=== PATIENT | male | born 2000 | race Caucasian/White ===

== ENCOUNTER → 2018-01-11 | Outpatient (CLI) | payer OTHER ==
[~2018-01-11] MED LIST: ALLERGY MED; ASPI-586 PO
--- NOTE | 2018-01-11 17:44 | Diagnostic Imaging Report ---
INDICATION: Chronic right foot pain in the region of the first metatarsal. TIME OF EXAM: 5:49 PM Three views of the right foot were obtained. FINDINGS: The metatarsals appear intact. No periosteal reaction or stress reaction is seen. The phalanges are intact. The midfoot and hindfoot are unremarkable. No fractures are seen. IMPRESSION: No acute bony abnormality is detected. Dictated by: Dictated on workstation # [id number]
== END ==
LOC: RAD 17:08
PROVIDERS: ATTEND Pediatrics
DX: G89.29 Other chronic pain (principal); M79.671 Pain in right foot
CPT/HCPCS: 73630

== ENCOUNTER 2020-01-27 12:59 | Emergency (ER) | payer OTHER ==
[~2020-01-27] VITALS: Ht 177.8 cm; Wt 79.3 kg
[2020-01-27] MEDS ORDERED: ACETAMINOPHEN 500 MG TAB (TYLENOL) PO STA (14:08)
--- NOTE | 2020-01-27 14:30 | ED Cough/URI ---
General Chief Complaint: Cough/Cold/Flu Symptoms Stated Complaint: SOB,COUGH,BACK PAIN Nursing Triage Note: PATIENT AMBULATORY TO COVID UNIT WITH COMPLAINT OF HEADACHE, COUGH, BODY ACHES, SORE THROAT THAT BEGAN THIS MORNING. PT IS A [employer] STUDENT. HE DOES NOT KNOW IF HE HAS BEEN EXPOSED TO COVID. Sepsis Screen: Possible Severe Sepsis Risk Source: patient Exam Limitations: no limitations History of Present Illness Date Seen by Provider: Jan 27, 2020 Time Seen by Provider: 14:00 Initial Comments here with report of fevers, chills, body aches, headache, sore throat and cough that started this morning. He is a [employer] student. He works at [employer] and there has beento positive cases of COVID-19 there. Otherwise he is unsure of contact an COVID-19. Timing/Duration: this morning, getting worse Severity/Quality: mild, dry cough Prior Episodes/Possible Cause: no prior episodes Modifying Factors: Improves With Rest Associated Symptoms: cough, fever/chills, muscle aches, nasal congestion, shortness of breath, sore throat Allergies and Home Medications Allergies Coded Allergies: No Known Drug Allergies (Unverified , 10/10/10) Home Medications Aspirin 81 Mg Tablet.dr, 81 MG PO DAILY, (Reported) Patient Home Medication List Home Medication List Reviewed: Yes Review of Systems Review of Systems Constitutional: see HPI, chills, fever EENTM: nose congestion, throat pain Respiratory: cough, short of breath Cardiovascular: no symptoms reported Gastrointestinal: no symptoms reported Genitourinary: no symptoms reported Musculoskeletal: No joint pain; muscle pain Skin: no symptoms reported All Other Systems Reviewed Negative Unless Noted: Yes Past Tadhvwl-Ttmfsb-Yxoecm Hx Past Med/Social Hx: Reviewed Nursing Past Med/Soc Hx Patient Social History Alcohol Use: Occasionally Uses Alcohol Beverage of Choice: Beer Recreational Drug Use: No Smoking Status: Never a Smoker 2nd Hand Smoke Exposure: No Recent Foreign Travel: No Contact w/Someone Who Travel: No Recent Infectious Disease Expo: No Recent Hopitalizations: No Physical Abuse: No Sexual Abuse: No Mistreated: No Fear: No Immunizations Up To Date Tetanus Booster (TDap): Less than 5yrs PED Vaccines UTD: Yes Past Medical History Surgeries: Yes (DENTAL) Respiratory: No Cardiac: No Neurological: No Reproductive Disorders: No Sexually Transmitted Disease: No Gastrointestinal: No Musculoskeletal: No Endocrine: No Cancer: No Psychosocial: No Family Medical History Reviewed Nursing Family Hx Physical Exam Vital Signs - First Documented 01/27/20 13:15 Temp 37.6 Pulse 97 Resp 18 B/P (MAP) 133/86 (102) Pulse Ox 98 O2 Delivery Room Air Capillary Refill : Less Than 3 Seconds Height: 5'10" Weight: 210lbs. oz. 95.175582ox; 25.00 BMI Method:Stated General Appearance: WD/WN, no apparent distress HEENT: PERRL/EOMI, pharyngeal erythema Neck: full range of motion, supple, normal inspection Respiratory: lungs clear, normal breath sounds Cardiovascular: regular rate, rhythm, no murmur Gastrointestinal: non tender, soft Extremities: non-tender, normal inspection Neurologic/Psychiatric: alert, oriented x 3 Skin: normal color, warm/dry Progress/Results/Core Measures Suspected Sepsis Recent Fever Within 48 Hours: Yes Infection Criteria Present: Suspected New Infection New/Unexplained Altered Menta: No Sepsis Screen: Possible Severe Sepsis Risk SIRS Temperature: Pulse: 97 Respiratory Rate: 18 Blood Pressure 133 /86 Mean: 102 Results/Orders Lab Results Laboratory Tests Test 01/27/20 14:11 Range/Units Coronavirus (COVID-19)(PCR) DETECTED H Not Detecte My Orders Orders - ROC GREEN MD Chest 1 View, Ap/Pa Only (01/27/20 13:58) Coronavirus Sars-Cov-2 So 2018 (01/27/20 13:58) Acetaminophen Tablet (Tylenol Tablet) (01/27/20 14:08) Vital Signs/I&O 01/27/20 01/27/20 01/27/20 13:15 14:19 14:46 Temp 37.6 37.6 Pulse 97 87 Resp 18 16 B/P (MAP) 133/86 (102) 112/87 Pulse Ox 98 98 O2 Delivery Room Air Room Air Capillary Refill : Less Than 3 Seconds Blood Pressure Mean: 102 Progress Note : Progress Note seen and evaluated. Chest x-ray and COVID screening swab ordered. Tylenol 1 g by mouth. Monitor patient.1430:questionable airspace density. Atelectasis likely. Also consistent with concerns for COVID-19. Discharged home with return precautions. Patient verbalize understanding instructions and agreement with plan. Diagnostic Imaging Diagonstic Imaging: Xray Plain Films/CT/US/NM/MRI: chest Comments NAME: WICHO GAMEZ [facility] REC#: [id number] PT STATUS: REG ER : 2000 PHYSICIAN: ROC GREEN MD ADMIT DATE: 01/27/20/ER Draft Date of Exam:01/27/20 CHEST 1 VIEW, AP/PA ONLY EXAM: CHEST 1 VIEW, AP/PA ONLY INDICATION: Fever. Cough. Shortness of air. COMPARISON: None. FINDINGS: Normal heart size and central pulmonary vascularity. No pleural effusion or pneumothorax. Subtle airspace opacity in the right lung base. Osseous structures are intact. IMPRESSION: Subtle airspace opacity in the right lung base could represent early pneumonitis versus atelectasis. Dictated on workstation # [id number] Dict: 01/27/20 1430 Trans: 01/27/20 1432 CV [id number] Interpreted by: MYLA CISNEROS MD Electronically signed by: Reviewed: Reviewed by Me Departure Impression Primary Impression: Viral infection Additional Impression: 2019 novel coronavirus disease (COVID-19) Disposition: 01 HOME, SELF-CARE Condition: Stable Departure-Patient Inst. Decision time for Depature: 14:32 Referrals: CARLITA CRUZ MD (PCP/Family) Primary Care Physician Patient Instructions: Coronavirus Disease 2019 (COVID-19) (DC), Viral Syndrome (DC) Add. Discharge Instructions: All discharge instructions reviewed with patient and/or family. Voiced understanding. Drink plenty of fluids and get plenty of rest. You will need to remain on quarantine until test results are noted. If they are negative, you will need to be isolated for 3 days after symptoms resolve. If they are positive, the health department will call you and direct quarantine timeframe. You may take ibuprofen 600 mg every 8 hours as needed for fever or pain. You may take Tylenol/acetaminophen 1000 mg every 8 hours as needed for fever.. Return for worse pain, fever, vomiting, weakness, breathing problems or other concerns as needed. Copy Copies To 1: LAMBERT ELLIOTT MD, TIMOTHY D MD Jan 27, 2020 14:30
[2020-01-27 14:46] VITALS: BP 112/87
--- NOTE | 2020-01-28 15:13 | NUR ---
Notified patient of positive COVID test. Quarantine explained and questions answered. Also notified the [facility] Health Dept.
== END 2020-01-27 14:47 | disposition home or self-care (01) ==
LOC: EDUNIT# 12:59 → ER 13:01
DX: U07.1 COVID-19 (principal); Z79.82 Long term (current) use of aspirin
CPT/HCPCS: 71045; 99283; U0002; 87635

== ENCOUNTER 2020-08-26 11:39 | Emergency (ER) | payer OTHER ==
[~2020-08-26] VITALS: Ht 177.8 cm; Wt 81.6 kg
--- NOTE | 2020-08-26 12:03 | ED Lower Extremity ---
General Chief Complaint: Lower Extremity Stated Complaint: RIGHT ANKLE INJURY Nursing Triage Note: PT AMBULATE TO TRIAGE WITH C/O RIGHT ANKLE PAIN STARTING LAST NIGHT. PT STATES HE WAS PLAYING BASKETBALL AND LANDED ON ANOTHER PLAYER. Nursing Sepsis Screen: No Definite Risk Source: patient, family Exam Limitations: no limitations History of Present Illness Date Seen by Provider: Aug 26, 2020 Time Seen by Provider: 12:00 Initial Comments Patient is a 20-year-old male who presents to the emergency department today with a chief complaint of right ankle pain after rolling his ankle while playing basketball last evening. Patient states that he has been able to barely put weight on the ankle. He denies any knee pain or hip pain. He is having a little bit of left leg cramping secondary to hopping around on his left leg. No other complaints of recent illness or injury. Onset: yesterday Pain/Injury Location: right ankle Method of Injury: fell Modifying Factors: Worse With Movement Allergies and Home Medications Allergies Coded Allergies: No Known Drug Allergies (Unverified , 10/10/10) Home Medications Aspirin 81 Mg Tablet.dr, 81 MG PO DAILY, (Reported) Patient Home Medication List Home Medication List Reviewed: Yes Review of Systems Constitutional: no symptoms reported EENTM: no symptoms reported Respiratory: no symptoms reported Cardiovascular: no symptoms reported Gastrointestinal: no symptoms reported Musculoskeletal: joint pain (Right ankle), joint swelling (Right ankle) Skin: no symptoms reported All Other Systems Reviewed Negative Unless Noted: Yes Past Uulyuyj-Aihyrx-Lltquh Hx Patient Social History Alcohol Use: Occasionally Uses Number of Drinks Today: AA Alcohol Beverage of Choice: Beer Smoking Status: Current Everyday Smoker Type Used: Electronic/Vapor 2nd Hand Smoke Exposure: No Recent Infectious Disease Expo: No Recent Hopitalizations: No Immunizations Up To Date Tetanus Booster (TDap): Less than 5yrs PED Vaccines UTD: Yes Past Medical History Surgeries: Yes (DENTAL) Respiratory: No Cardiac: No Neurological: No Reproductive Disorders: No Sexually Transmitted Disease: No Gastrointestinal: No Musculoskeletal: No Endocrine: No Cancer: No Psychosocial: Yes ADD/ADHD Integumentary: No Blood Disorders: No Physical Exam Vital Signs Vital Signs - First Documented 08/26/20 11:46 Temp 36.9 Pulse 93 Resp 18 B/P (MAP) 146/84 (104) O2 Delivery Room Air Capillary Refill : Less Than 3 Seconds Height, Weight, BMI Height: 5'10" Weight: 210lbs. oz. 95.951430fd; 25.00 BMI Method:Stated General Appearance: WD/WN, no apparent distress Cardiovascular: regular rate, rhythm, other (Distal pulses intact) Respiratory: normal breath sounds, no respiratory distress, no accessory muscle use Gastrointestinal: non tender, soft Hips: bilateral hip non-tender, bilateral hip normal inspection, bilateral hip normal range of motion Legs: bilateral leg non-tender, bilateral leg normal inspection, bilateral leg normal range of motion Knees: bilateral knee non-tender, bilateral knee normal inspection, bilateral knee normal range of motion Ankles: right ankle bone tenderness, right ankle joint effusion, right ankle soft tissue tenderness, right ankle swelling Feet: bilateral foot non-tender, bilateral foot normal inspection, bilateral foot normal range of motion Neurologic/Tendon: normal sensation, normal motor functions, normal tendon functions Neurologic/Psychiatric: alert, normal mood/affect, oriented x 3 Skin: normal color, warm/dry Progress/Results/Core Measures Results/Orders My Orders Orders - REZA BHARDWAJ MD Ankle, Right, 3 Views (08/26/20 12:03) Hydrocodone/Apap 7.5/325 Tab (Lortab 7. (08/26/20 12:15) Medications Given in ED Current Medications Medications Dose Ordered Sig/Anais Route Start Time Stop Time Status Last Admin Dose Admin Acetaminophen/ Hydrocodone Bitart 1 ea ONCE ONCE PO 08/26/20 12:15 08/26/20 12:16 DC 08/26/20 12:20 1 EA Vital Signs/I&O 08/26/20 11:46 Temp 36.9 Pulse 93 Resp 18 B/P (MAP) 146/84 (104) O2 Delivery Room Air Blood Pressure Mean: 104 Progress Progress Note : Time: 12:58 Progress Note Patient will be placed in an air splint to the right lower extremity. Given crutches advised to toe-touch weight-bear for the next 3 days and then slowly put more weight on his right ankle. He will be sent home with some pain medications. He is advised to ice and elevate. He verbalized understanding. All questions were sought and answered. Patient stable for discharge. Diagnostic Imaging Diagonstic Imaging: Xray Plain Films/CT/US/NM/MRI: ankle Comments [facility] [place], [place] NAME: JONN GAMEZ [facility] REC#: [id number] PT STATUS: REG ER : 2000 PHYSICIAN: REZA BHARDWAJ MD ADMIT DATE: 08/26/20/ER Signed Date of Exam:08/26/20 ANKLE, RIGHT, 3 VIEWS INDICATION: Rolled ankle, pain. COMPARISON: 10/13/2013 TECHNIQUE: Three radiographs of the right ankle dated 08/27/2019. FINDINGS: No acute fracture or dislocation. No destructive osseous process. The talar dome is unremarkable. Ankle mortise is symmetric. Soft tissue swelling is noted about the ankle, particularly laterally. No suspicious radiopaque foreign body. IMPRESSION: No acute osseous abnormality with soft tissue swelling about the ankle, particularly laterally. Dictated by: Dictated on workstation # [id number] Dict: 08/26/20 1249 Trans: 08/26/20 1254 [facility] [id number] Interpreted by: ERIC HAWKINS MD Electronically signed by: ERIC HAWKINS MD 08/26/20 1254 Departure Impression Primary Impression: Sprain and strain of ankle Disposition: 01 HOME, SELF-CARE Condition: Stable Departure-Patient Inst. Decision time for Depature: 13:03 Referrals: SELENA PARKER MD (PCP/Family) Primary Care Physician Patient Instructions: Ankle Sprain ED Add. Discharge Instructions: Ice and elevate your right ankle for the next 24 hours. Take wxzo-hsl-sfyjozr ibuprofen or Aleve as directed on the bottle. Always take this medication with food. Follow-up with your primary care physician, Dr. Parker or with Dr. Jorgensen, orthopedic surgeon area operations director. His contact information has been provided. Scripts Hydrocodone/Acetaminophen (Hydrocodone-Acetamin 5-325 mg) 1 Each Tablet 1 TAB PO Q6H PRN for PAIN-MODERATE (5-7), #10 TAB Prov: REZA BHARDWAJ MD 08/26/20 Work/School Note: School/Childcare Release Date Seen in the Emergency Department: Aug 26, 2020 Time Dismissed from Emergency Department: 13:25 Return to School: Aug 27, 2020 Restrictions: No Sports-Until Released Other Restrictions Listed Below: Jonn will need to use the elevator x1 week to get to class REZA BHARDWAJ MD Aug 26, 2020 12:03
[2020-08-26] MEDS ORDERED: HYDROcodone/APAP 7.5 MG/325 MG (LORTAB, LORCET PLUS) TABLET PO ONE (12:15)
--- NOTE | 2020-08-26 12:53 | Diagnostic Imaging Report ---
INDICATION: Rolled ankle, pain. COMPARISON: 10/13/2013 TECHNIQUE: Three radiographs of the right ankle dated 08/27/2019. FINDINGS: No acute fracture or dislocation. No destructive osseous process. The talar dome is unremarkable. Ankle mortise is symmetric. Soft tissue swelling is noted about the ankle, particularly laterally. No suspicious radiopaque foreign body. IMPRESSION: No acute osseous abnormality with soft tissue swelling about the ankle, particularly laterally. Dictated by: Dictated on workstation # [id number]
[2020-08-26] MEDS ORDERED: ACHD5005 PO (13:25)
[2020-08-26 13:32] VITALS: BP 121/74
== END 2020-08-26 13:32 | disposition home or self-care (01) ==
LOC: EDUNIT# 11:39 → ER 11:43
DX: S96.911A Strain of unspecified muscle and tendon at ankle and foot level, right foot, initial encounter (principal); S93.401A Sprain of unspecified ligament of right ankle, initial encounter; F17.290 Nicotine dependence, other tobacco product, uncomplicated; Z79.82 Long term (current) use of aspirin; W03.XXXA Other fall on same level due to collision with another person, initial encounter; X50.1XXA Overexertion from prolonged static or awkward postures, initial encounter; Y93.67 Activity, basketball
CPT/HCPCS: 73610; 99283; L4350

== ENCOUNTER → 2020-09-03 | Outpatient (CLI) | payer OTHER ==
[~2020-09-03] MED LIST changes: +ACHD5005 PO
--- NOTE | 2020-09-03 10:38 | Diagnostic Imaging Report ---
INDICATION: Ankle pain. Injury. COMPARISON: 08/26/2020 FINDINGS: 3 radiographic views of the right ankle were obtained and show persistent mild asymmetric lateral soft tissue swelling. Underlying osseous structures are intact. Joint spaces are maintained. There is no evidence acute fracture or dislocation. No unexpected radiopaque foreign bodies are seen. IMPRESSION: 1. Mild soft tissue swelling, but no evidence of acute fracture or dislocation of the right ankle. Dictated by: Dictated on workstation # [id number]
--- NOTE | 2020-09-03 10:39 | Diagnostic Imaging Report ---
INDICATION: Pain status post previous injury COMPARISON: 01/11/2018 FINDINGS: 3 views of the right foot demonstrate no acute fracture or dislocation. There are no focal osseous lesions. There is no soft tissue swelling. Joint spaces are well maintained. No radiopaque foreign bodies are seen. IMPRESSION: No acute fractures or dislocations of the right foot. Dictated by: Dictated on workstation # [id number]
== END ==
LOC: RAD 09:17
PROVIDERS: ATTEND Nurse Practitioner Family
DX: M25.571 Pain in right ankle and joints of right foot (principal); M25.471 Effusion, right ankle
CPT/HCPCS: 73610; 73630

== ENCOUNTER 2021-03-16 03:51 | Emergency (ER) | payer OTHER ==
[~2021-03-16] VITALS: Ht 180.3 cm; Wt 75.0 kg
--- NOTE | 2021-03-16 05:11 | ED Psychosocial ---
General Chief Complaint: General Problems/Pain Stated Complaint: ANXIETY Nursing Triage Note: Pt arrival to ER via EMS with complaint of Anxiety. Pt states that his parents who have been together forever are talking about getting a divorce. Pt states that this AM he got into argument with his father and just has alot going on. Pt states that he did smoke some pot around 0100. Pt denies other complaints. (MAGDA BISWAS) History of Present Illness Date Seen by Provider: Mar 16, 2021 Time Seen by Provider: 04:00 Initial Comments Patient is a 20 year old male that presents to the emergency room with complaints of anxiety. Patient states that he recently found out his father is getting deployed. He states that he had a rough day at work and then when he got home his parents were arguing. Patient states he got into an argument with his father, which caused his parents to fight further and caused his father to leave briefly. Patient states his anxiety began flaring up then and progressively got worse until this evening. Patient tried to smoke marijuana to calm down around midnight. Around 0230 patient could no longer keep himself calm. Reports seeing lights when he opened his eyes and thought his heart was going to beat out of his chest. Stated he was scared something might happen to him and came to the ER to get help. Patient has a history of anxiety and used to take buspar four years ago but has since discontinued. Patient does state he still suffers from anxiety, and occasionally still does have periods of increased anxiety, but nothing like this. Patient does suffer from ADHD and take vyvanse daily. Timing/Duration: this afternoon, this evening, getting worse Severity: mild Associated Symptoms: anxiety, impaired concentration (MAGDA BISWAS) Allergies and Home Medications Allergies Coded Allergies: No Known Drug Allergies (Unverified , 10/10/10) Patient Home Medication List Home Medication List Reviewed: Yes (MAGDA BISWAS) Aspirin (Aspir 81) 81 Mg Tablet., 81 MG PO DAILY, (Reported) Entered as Reported by: SHANTEL MATIAS on 01/28/16 1429 Hydrocodone/Acetaminophen (Hydrocodone-Acetamin 5-325 mg) 1 Each Tablet, 1 TAB P O Q6H PRN for PAIN-MODERATE (5-7) Prescribed by: REZA BHARDWAJ on 08/26/20 1326 [Allergy Med] , (Reported) Entered as Reported by: ROSIO HALE on 02/04/12 7809 Review of Systems Constitutional: diaphoresis EENTM: blurred vision Respiratory: No cough; short of breath Cardiovascular: No chest pain; palpitations Gastrointestinal: No abdominal pain Psychiatric/Neurological: Anxiety (MAGDA BISWAS) Past Xfnduuv-Xnyyus-Qsaaoq Hx Patient Social History Tobacco Use?: Yes Use of E-Cig and/or Vaping dev: Yes E-Cig or Vaping type used: Nicotine, Marijuana Use of E-Cig and/or Vaping Joon: Current Everyday User Substance use?: Yes Substance type: Marijuana Substance frequency: Couple times a week Alcohol Use?: Yes Alcohol type: Beer, Hard Liquor Alcohol Frequency: Couple times a week Pt feels they are or have been: No (MAGDA BISWAS) Immunizations Up To Date Tetanus Booster (TDap): Less than 5yrs PED Vaccines UTD: Yes Influenza Vaccine Up-to-Date: No; Not Current (MAGDA BISWAS) Past Medical History Surgeries: Yes (DENTAL) Respiratory: No Cardiac: No Neurological: No Reproductive Disorders: No Sexually Transmitted Disease: No Gastrointestinal: No Musculoskeletal: No Endocrine: No Cancer: No Psychosocial: Yes ADD/ADHD Integumentary: No Blood Disorders: No (MAGDA BISWAS) Family Medical History Hypertension (MAGDA BISWAS) Physical Exam Vital Signs - First Documented 03/16/21 03:54 Temp 36.7 Pulse 107 Resp 20 B/P (MAP) 190/92 (124) Pulse Ox 97 O2 Delivery Room Air (REZA BHARDWAJ MD) Capillary Refill : Less Than 3 Seconds (MAGDA BISWAS) Height, Weight, BMI Height: 5'10" Weight: 210lbs. oz. 95.964462wk; 23.00 BMI Method:Stated General Appearance: WD/WN, mild distress (anxious) Neck: normal inspection Respiratory: no respiratory distress, no accessory muscle use Cardiovascular: normal peripheral pulses, tachycardia Gastrointestinal: non tender, soft Neurologic/Psychiatric: alert, oriented x 3 Skin: normal color, warm/dry (MAGDA BISWAS) Progress/Results/Core Measures Results/Orders Vital Signs/I&O 03/16/21 03:54 Temp 36.7 Pulse 107 Resp 20 B/P (MAP) 190/92 (124) Pulse Ox 97 O2 Delivery Room Air (REZA BHARDWAJ MD) Blood Pressure Mean: 124 Departure Impression Primary Impression: Anxiety attack Disposition: 01 HOME, SELF-CARE Condition: Improved Departure-Patient Inst. Decision time for Depature: 05:34 (REZA BHARDWAJ MD) Referrals: SELENA PARKER MD (PCP/Family) Primary Care Physician Patient Instructions: Anxiety, Adult (DC) Add. Discharge Instructions: I have sent a prescription for Vistaril to [facility] for you. Do not drive and take this medication. Please follow up with Dr Parker regarding your anxiety/panic disorder. Return to the Emergency Department for any new, concerning or emergent complaints. Scripts Hydroxyzine Pamoate (Vistaril) 50 Mg Capsule 50 MG PO Q6H PRN for anxiety, #20 CAP Prov: REZA BHARDWAJ MD 03/16/21 I have seen and examined the patient. I agree with the medical students documentation. I have performed the medical decision making regarding his plan of care. patient will be sent home with a prescription for Vistaril. Encouraged to followup with his PCP regarding anxiety/panic. HE verbalizes understanding. ALl questions have been sought and answered. Patient is improved at discharge. (REZA BHARDWAJ MD) Copy Copies To 1: SELENA PARKER MD, LANDON Mar 16, 2021 05:11 REZA BHARDWAJ MD Mar 16, 2021 05:39
[2021-03-16] MEDS ORDERED: HYDR50CA PO (05:38)
[2021-03-16 05:49] VITALS: BP 159/77
== END 2021-03-16 05:50 | disposition home or self-care (01) ==
LOC: EDUNIT# 03:51 → ER 03:52
DX: F41.9 Anxiety disorder, unspecified (principal); F90.9 Attention-deficit hyperactivity disorder, unspecified type; F17.200 Nicotine dependence, unspecified, uncomplicated; Z79.82 Long term (current) use of aspirin; Z79.899 Other long term (current) drug therapy
CPT/HCPCS: 99283